=== PATIENT | female | born 1980 | race Caucasian/White ===

== ENCOUNTER 2016-12-01 19:51 | Emergency (ER) | payer BC, MEDICAID ==
[~2016-12-01] VITALS: Ht 177.8 cm; Wt 56.7 kg
[2016-12-01 19:55] VITALS: BP 116/101
[2016-12-01 20:18] LABS: PREGNANCY TEST URINE QUAL NEGATIVE (NEGATIVE)
[2016-12-01 20:23] LABS: APPEARANCE,URINE Slightly Cloudy (CLEAR); BILIRUBIN,URINE MODERATE (NEGATIVE); BLOOD, URINE Negative Ery/uL (NEGATIVE); COLOR,URINE Orange (YELLOW); KETONES,URINE 15 (NEGATIVE); LEUKOCYTE ESTERASE ,URINE Large (NEGATIVE); NITRITE, URINE Positive (NEGATIVE); PROTEIN,URINE >=300 mg/dl (NEGATIVE); UGLUCOSE 250 MG/DL mg/dL (NEGATIVE); UROBILINOGEN,URINE >=8.0 EU/dL (0.2)
[2016-12-01 20:31] LABS: CLINITEST,URINE 3/4%; RBC,URINE 0-2 /HPF (0-2)
[2016-12-01 20:32] LABS: BACTERIA,URINE None seen /HPF (None Seen); SQUAMOUS EPITHELIAL CELL,UR Moderate /HPF (None Seen); URINE AMORPHOUS URATE Moderate /HPF (None Seen)
== END 2016-12-01 20:30 | disposition home or self-care (01) ==
LOC: ER 19:52
DX: N39.0 Urinary tract infection, site not specified (principal); F17.200 Nicotine dependence, unspecified, uncomplicated
CPT/HCPCS: 81000-TC; 84703-TC; 87086-TC; A4606; Z7610

== ENCOUNTER 2017-08-19 07:57 | Emergency (ER) | payer MEDICAID ==
[~2017-08-19] VITALS: Ht 177.8 cm; Wt 72.6 kg
[2017-08-19 08:00] VITALS: BP 110/73
== END 2017-08-19 08:41 | disposition home or self-care (01) ==
LOC: ER 07:59
DX: J36 Peritonsillar abscess (principal); D64.9 Anemia, unspecified; N94.6 Dysmenorrhea, unspecified; F10.10 Alcohol abuse, uncomplicated; F17.200 Nicotine dependence, unspecified, uncomplicated
CPT/HCPCS: A4606; Z7610

== ENCOUNTER 2017-08-19 19:52 | Emergency (ER) | payer MEDICAID ==
[~2017-08-19] VITALS: Ht 167.6 cm; Wt 63.5 kg
--- NOTE | 2017-08-19 20:31 | NUR ---
ER VINCENZO QUIROZ AT BEDSIDE TO EVAL PT WITH ORDERS RECEIVED. WILL CARRY OUT ORDERS.
[2017-08-19] MEDS ORDERED: KETOROLAC TROMETHAMINE INJ 30 MG/ML VIAL ONE (20:48)
[2017-08-19] MEDS ORDERED: DEXAMETHASONE SOD PHOSPHATE 10 MG/ML VIAL ONE (20:48)
[2017-08-19] MEDS ORDERED: CLINDAMYCIN 900 MG/6 ML VIAL ONE (20:48)
[2017-08-19] MEDS: IV NS 0.9% 1,000 ML BAG IV STA (20:56)
--- NOTE | 2017-08-19 20:57 | NUR ---
RN AT BEDSIDE TO MEDICATE PT.
[2017-08-19 21:00] LABS: BASOPHILS % (AUTO) 0.2 % (0.0-2.0); EOSINOPHILS % (AUTO) 0.2 % (0.0-6.0); HEMATOCRIT 37 % (33-45); HEMOGLOBIN 12.6 g/dL (11.5-14.8); LYMPHOCYTES # (AUTO) 0.5 /CMM (0.8-4.8); LYMPHOCYTES % (AUTO) 2.3 % (20.0-44.0); MEAN CORPUSCULAR HGB CONC 34 g/dl (31.0-36.0); MEAN CORPUSCULAR VOLUME 78 fL (82-100); MONOCYTES # (AUTO) 0.7 /CMM (0.1-1.30); MONOCYTES % (AUTO) 3.6 % (2.0-12.0); NEUTROPHILS # (AUTO) 18.5 /CMM (1.8-8.9); NEUTROPHILS % (AUTO) 93.7 % (43.0-81.0); PLATELET COUNT (AUTO) 226 /CMM (150-450); WHITE BLOOD COUNT (AUTO) 19.8 K/uL (4.3-11.0)
[2017-08-19] MEDS ORDERED: IV NS 0.9% 250 ML IV ONE (21:03)
[2017-08-19] MEDS: DEXAMETHASONE SOD PHOSPHATE 10 MG/ML VIAL IV ONE (21:03)
[2017-08-19] MEDS ORDERED: IOHEXOL-300 100 ML VIAL IV ONE (21:03)
[2017-08-19] MEDS: KETOROLAC TROMETHAMINE INJ 30 MG/ML VIAL IV STA (21:04)
[2017-08-19] MEDS: CLINDAMYCIN 600 MG in IV D5W 100 ML IV ONE (21:05)
[2017-08-19 21:08] LABS: CALCIUM, SERUM 8.8 mg/dL (8.5-10.1); CREATININE 0.9 mg/dL (0.6-1.3); POTASSIUM 3.8 mmol/L (3.5-5.1)
--- NOTE | 2017-08-19 21:10 | NUR ---
PT TRANSPORTED TO RADIOLOGY FOR CT NECK WITH IV CONTRAST.
[2017-08-19 21:14] LABS: ALBUMIN 3.6 g/dL (3.4-5.0); BILIRUBIN,TOTAL 0.5 mg/dL (0.2-1.0); TOTAL PROTEIN, SERUM 7.5 g/dL (6.4-8.2)
--- NOTE | 2017-08-19 21:23 | NUR ---
PT BACK FROM RADIOLOGY. PENDING CT RESULT.
--- NOTE | 2017-08-19 22:36 | NUR ---
IV removed. Catheter intact and site benign. Pressure and 4x4 applied to site. No bleeding noted. Patient discharged to home in stable condition. Written and verbal after care instructions given. Patient verbalizes understanding of instruction. ambulatory with a steady gait noted. pt [id number] no acute distress noted, resp even and unlabored.
[2017-08-19 22:55] VITALS: BP 127/63
== END 2017-08-19 22:56 | disposition home or self-care (01) ==
LOC: ER 19:53
DX: J03.90 Acute tonsillitis, unspecified (principal); D64.9 Anemia, unspecified; N94.6 Dysmenorrhea, unspecified; F10.10 Alcohol abuse, uncomplicated; F17.200 Nicotine dependence, unspecified, uncomplicated
CPT/HCPCS: 36415; 70491-TC; 80053-TC; 85025-TC; A4606; J1100; J1885; J3490; J7030; J7050; J7060; Q9967; Z7610

== ENCOUNTER 2017-09-04 23:40 | Emergency (ER) | payer MEDICAID ==
[~2017-09-04] VITALS: Ht 177.8 cm; Wt 77.1 kg
[2017-09-05 00:05] VITALS: BP 131/89
[2017-09-05] MEDS ORDERED: DEXAMETHASONE SOD PHOSPHATE 4 MG/ML VIAL IM ONE (00:30)
[2017-09-05] MEDS ORDERED: HYDROMORPHONE 1 MG/1 ML DISP.SYRIN IM ONE (00:30)
[2017-09-05] MEDS ORDERED: CARISOPRODOL 350 MG TABLET PO ONE (00:30)
[2017-09-05] MEDS ORDERED: DEXAMETHASONE SOD PHOSPHATE 10 MG/ML VIAL ONE (00:33)
[2017-09-05] MEDS ORDERED: CARISOPRODOL 350 MG TABLET ONE (00:33)
[2017-09-05] MEDS ORDERED: HYDROMORPHONE INJ 2 MG/ML DISP.SYRIN ONE (00:34)
== END 2017-09-05 00:50 | disposition home or self-care (01) ==
LOC: ER 23:47
DX: M54.12 Radiculopathy, cervical region (principal); M62.838 Other muscle spasm; D64.9 Anemia, unspecified; F17.200 Nicotine dependence, unspecified, uncomplicated; Y04.8XXA Assault by other bodily force, initial encounter; Y93.89 Activity, other specified; Y92.89 Other specified places as the place of occurrence of the external cause; Y99.8 Other external cause status
CPT/HCPCS: 96372 ×2; 99284; A4606; J1100; J1170; Z7610

== ENCOUNTER 2017-10-10 20:37 | Emergency (ER) | payer MEDICAID ==
[~2017-10-10] VITALS: Ht 177.8 cm; Wt 63.5 kg
[2017-10-10 21:00] VITALS: BP 142/87
--- NOTE | 2017-10-10 21:00 | NUR ---
CALLED PT IN [place], NO RESPONSE
--- NOTE | 2017-10-10 23:28 | NUR ---
CALLED PT IN [place], NO RESPONSE
--- NOTE | 2017-10-11 00:11 | NUR ---
CALLED PT IN [place], NO RESPONSE
== END 2017-10-11 00:13 | disposition left against medical advice (07) ==
LOC: ER 20:39
DX: R07.0 Pain in throat (principal); Z53.21 Procedure and treatment not carried out due to patient leaving prior to being seen by health care provider
CPT/HCPCS: A4606; Z7610

== ENCOUNTER 2017-10-11 05:18 | Emergency (ER) | payer MEDICAID ==
[~2017-10-11] VITALS: Ht 177.8 cm; Wt 63.5 kg
[2017-10-11 06:02] VITALS: BP 125/82
== END 2017-10-11 06:24 | disposition home or self-care (01) ==
LOC: ER 05:21
DX: J04.0 Acute laryngitis (principal); Z72.0 Tobacco use; D64.9 Anemia, unspecified; N94.6 Dysmenorrhea, unspecified; F10.10 Alcohol abuse, uncomplicated; F17.210 Nicotine dependence, cigarettes, uncomplicated; Z88.0 Allergy status to penicillin
CPT/HCPCS: A4606; Z7502; Z7610